=== PATIENT | female | born 1985 | race African-American/Black ===

== ENCOUNTER 2017-08-30 10:06 | Emergency (ER) | payer OTHER ==
[~2017-08-30] VITALS: Ht 162.6 cm; Wt 68.0 kg
[2017-08-30] MEDS ORDERED: TRAMADOL 50 MG50 MG PO (10:35)
[2017-08-30] MEDS ORDERED: NAPROSYN500 MG PO (11:00)
[2017-08-30 11:17] VITALS: BP 101/62
== END 2017-08-30 11:22 | disposition home or self-care (01) ==
LOC: M.ERS 10:06
DX: S40.012A Contusion of left shoulder, initial encounter (principal); S80.01XA Contusion of right knee, initial encounter; S90.31XA Contusion of right foot, initial encounter; F17.200 Nicotine dependence, unspecified, uncomplicated; V89.9XXA Person injured in unspecified vehicle accident, initial encounter; Y93.89 Activity, other specified; Y92.89 Other specified places as the place of occurrence of the external cause; Y99.8 Other external cause status

== ENCOUNTER 2017-09-30 08:46 | Emergency (ER) | payer OTHER ==
[~2017-09-30] VITALS: Ht 162.6 cm; Wt 63.5 kg
[~2017-09-30 08:46] MED LIST: NAPROSYN500 MG PO; TRAMADOL 50 MG50 MG PO
[2017-09-30 09:18] LABS: ABSOLUTE EOSINOPHILS 0.1 thou/uL (0.0-0.7); ABSOLUTE LYMPHOCYTES 1.2 thou/uL (0.8-5.3); ABSOLUTE MONOCYTES 0.4 thou/uL (0.0-1.2); ABSOLUTE NEUTROPHILS 3.3 thou/uL (1.6-8.1); EOSINOPHILS 2.1 %; HEMATOCRIT 37.7 % (37.0-47.0); HEMOGLOBIN 12.3 gm/dL (12.0-15.0); LYMPHOCYTES 24.5 %; MCH 28.4 pg (26.0-34.0); MCHC 32.7 g/dL (28.0-37.0); MCV 86.8 fL (80.0-100.0); MONOCYTES 7.3 %; MPV 9.9 fl. (7.2-11.1); NUCLEATED RBCS 0 /100WBC; PLATELET COUNT* 217 thou/uL (150-400); POLYS 65.1 %; RBC 4.34 mil/uL (4.20-5.00); RDW-CV 13.9 % (10.5-14.5); WBC 5.1 thou/uL (4.0-11.0)
[2017-09-30 09:28] LABS: URINE BILIRUBIN NEGATIVE (Negative); URINE BLOOD NEGATIVE (Negative); URINE CLARITY CLEAR; URINE COLOR YELLOW; URINE GLUCOSE-RANDOM NEGATIVE (Negative); URINE KETONES NEGATIVE (Negative); URINE LEUKOCYTES-REFLEX NEGATIVE (Negative); URINE NITRITE-REFLEX NEGATIVE (Negative); URINE PROTEIN NEGATIVE (Negative); URINE UROBILINOGEN 0.2 E.U./dl (0.2-1.0)
[2017-09-30 10:07] LABS: ALBUMIN 3.5 g/dL (3.4-5.0); CALCIUM 8.6 mg/dL (8.5-10.1); CREATININE 0.8 mg/dL (0.6-1.3); POTASSIUM 3.7 mmol/L (3.5-5.1); TOTAL BILIRUBIN 0.3 mg/dL (<0.1-1.0); TOTAL PROTEIN 7.3 g/dL (6.4-8.2)
[2017-09-30] MEDS ORDERED: CARAFATE 1 GM TA1 G1 PO (10:33)
[2017-09-30] MEDS ORDERED: ZOFRAN ODT4 MG PO (10:33)
[2017-09-30] MEDS ORDERED: BENTYL 20 MG TA20 M1 PO (10:34)
[2017-09-30 10:41] VITALS: BP 117/48
== END 2017-09-30 10:41 | disposition home or self-care (01) ==
LOC: M.ERS 08:46
PROVIDERS: Emergency Medicine Emergency Medical Services
DX: R10.31 Right lower quadrant pain (principal); R10.13 Epigastric pain; F17.200 Nicotine dependence, unspecified, uncomplicated

== ENCOUNTER 2017-12-02 10:01 | Emergency (ER) | payer OTHER ==
[~2017-12-02] VITALS: Ht 162.6 cm; Wt 68.0 kg
[~2017-12-02 10:01] MED LIST changes: +BENTYL 20 MG TA20 M1 PO; +CARAFATE 1 GM TA1 G1 PO; +ZOFRAN ODT4 MG PO
[2017-12-02] MEDS ORDERED: NABUMETONE 750750 M1 PO (11:13)
[2017-12-02 11:39] VITALS: BP 99/69
== END 2017-12-02 11:39 | disposition home or self-care (01) ==
LOC: M.ERS 10:01
DX: S63.591A Other specified sprain of right wrist, initial encounter (principal); M79.641 Pain in right hand; F17.200 Nicotine dependence, unspecified, uncomplicated; Z98.890 Other specified postprocedural states; W01.0XXA Fall on same level from slipping, tripping and stumbling without subsequent striking against object, initial encounter; Y92.89 Other specified places as the place of occurrence of the external cause; Y93.89 Activity, other specified; Y99.8 Other external cause status

== ENCOUNTER 2019-01-31 06:36 | Emergency (ER) | payer OTHER ==
[~2019-01-31] VITALS: Ht 162.6 cm; Wt 61.2 kg
[~2019-01-31 06:36] MED LIST changes: +NABUMETONE 750750 M1 PO
[2019-01-31 07:32] LABS: INFLUENZA A ANTIGEN Negative (Negative); INFLUENZA B ANTIGEN Negative (Negative)
[2019-01-31 07:56] VITALS: BP 112/65
--- NOTE | 2019-02-02 17:00 | EKG ---
[place] [address] ELECTROCARDIOGRAM REPORT Name: MILLI ARROYO Room: [facility]#: [id number] Admission: 01/31/19 Attend Phys: Discharge: 01/31/19 Date of : 85 Report #: [id number] THIS REPORT FOR: //name// [facility] ED Test Date: 2019-01-31 Test Time: 06:45:37 Pat Name: MILLI ARROYO Department: Room: Gender: F [employer]ator: MIKAELA : 1985 Requested By: Pedro Pressley Order Number: [id number] Reading MD: Gelacio Nielsen Measurements Intervals [place] Rate: 84 P: 29 DC: 157 QRS: 70 QRSD: 90 T: 42 QT: 347 QTc: 411 Interpretive Statements Sinus rhythm Probable left atrial enlargement Compared to ECG 09/16/2018 09:30:47 no change Electronically Signed On 02-02-2019 17:00:43 [employer]ATFORM CONSULTANT by Gelacio Nielsen [email or web address] <ELECTRONICALLY SIGNED> By: Gelacio Nielsen MD, [facility] 02/02/19 1700 [id number] Gelacio Nielsen MD, FACC /EPI
== END 2019-01-31 07:57 | disposition home or self-care (01) ==
LOC: M.ERS 06:36
PROVIDERS: Emergency Medicine
DX: J06.9 Acute upper respiratory infection, unspecified (principal); N80.9 Endometriosis, unspecified; Z98.890 Other specified postprocedural states